=== PATIENT | female | born 1950 | race Caucasian/White ===

== ENCOUNTER 2021-05-18 03:30 | Emergency (ER) | payer MEDICARE ==
[2021-05-18 03:58] LABS: BASOPHIL 0.7 % (0-2); EOSINOPHIL 1.7 % (0-7); HCT 48.6 % (37.0-47.0); HGB 15.6 g/dl (12.5-16.0); LYMPHOCYTE 45.5 % (15-48); MCH 28.4 pg (25.0-31.0); MCHC 32.1 g/dL (32.0-36.0); MCV 88.4 fL (78.0-100.0); MONOCYTE 9.9 % (0-12); MPV 10.9 fL (6.0-9.5); NRBC 0; PLT 176 K/uL (150-400); RDW 13.1 % (11.5-14.0); WBC 5.9 K/uL (4.0-10.5)
[2021-05-18 03:59] LABS: BILIRUBIN 1+ mg/dL (NEGATIVE); BLOOD NEGATIVE Ery/uL (NEGATIVE); COLOR YELLOW (YELLOW); GLUCOSE (U) 2+ mg/dL (NORMAL); LEUKOCYTES NEGATIVE Leu/uL (NEGATIVE); NITRITE NEGATIVE (NEGATIVE); PROTEIN 2+ mg/dL (NEGATIVE); SPECIFIC GRAVITY >=1.030 (1.001-1.030); UROBILINOGEN 0.2 mg/dL (0.2-1.0)
[2021-05-18 04:01] LABS: CLARITY HAZY (CLEAR)
[2021-05-18 04:06] LABS: BACTERIA TRACE; URINARY WBC RARE
[2021-05-18 04:07] LABS: YEAST PRESENT
[2021-05-18 04:16] LABS: BUN/CREAT RATIO (CALC) 22.9 RATIO; CREATININE 0.7 mg/dL (0.51-0.95)
[2021-05-18] MEDS ORDERED: VALTREX1000 MG PO (05:39)
[2021-05-18] MEDS ORDERED: HYDROCODON-ACE1 EAC2 PO (05:39)
== END 2021-05-18 06:30 | disposition home or self-care (01) ==
LOC: FER 03:30
PROVIDERS: Emergency Medicine
DX: B02.9 Zoster without complications (principal); R11.0 Nausea; E11.9 Type 2 diabetes mellitus without complications; I10 Essential (primary) hypertension; Z87.442 Personal history of urinary calculi
CPT/HCPCS: 36415; 80048; 81001; 85025; J1885; J2405; J7030